=== PATIENT | male | born 1955 | race African-American/Black ===

== ENCOUNTER 2020-12-31 01:25 | Emergency (ER) | payer OTHER ==
[~2020-12-31] VITALS: Ht 175.3 cm; Wt 79.4 kg
[2020-12-31 03:51] VITALS: BP 133/60
== END 2020-12-31 03:52 | disposition home or self-care (01) ==
LOC: ER 01:25
DX: N48.30 Priapism, unspecified (principal); I10 Essential (primary) hypertension; E78.00 Pure hypercholesterolemia, unspecified